=== PATIENT | male | born 2005 | race Asian ===

== ENCOUNTER 2023-09-28 02:16 | Emergency (ER) | payer OTHER ==
[~2023-09-28] VITALS: Ht 170.2 cm; Wt 77.0 kg
[2023-09-28] MEDS ORDERED: QUET200T PO (02:40)
[2023-09-28] MEDS ORDERED: QUET400T13 PO (02:40)
[2023-09-28] MEDS ORDERED: QUET50TA24 PO (02:40)
[2023-09-28] MEDS ORDERED: LAMO-24 PO (02:40)
[2023-09-28 02:42] VITALS: BP 139/92; PULSE 111; RESP 20; TEMP 98.4
== END 2023-09-28 03:15 | disposition left against medical advice (07) ==
LOC: EMS 02:16
DX: F41.9 Anxiety disorder, unspecified (principal); Z53.21 Procedure and treatment not carried out due to patient leaving prior to being seen by health care provider
CPT/HCPCS: 99281; Z7502